=== PATIENT | male | born 1960 ===

== ENCOUNTER 2017-10-22 20:33 | Emergency (ER) | payer SELFPAY ==
[2017-10-22 22:05] LABS: Bilirubin,Urine NEG (Negative); Blood,Urine NEG (Negative); Color,Urine Yellow (Yellow); Mucus,Urine FEW /HPF; Protein,Urine <15 mg/dL mg/dL (Negative); WBC,Urine < 1.0 /HPF (0.0-6.0)
[2017-10-22 22:07] LABS: Basophils % (Auto) 1.1 % (0.0-1.8); Eosinophils # (Auto) 0.1 K/mm3 (0.0-0.4); Eosinophils % (Auto) 3.8 % (0.0-4.3); Hematocrit 41.2 % (35.5-45.6); Hemoglobin 13.9 gm/dl (11.8-15.2); Lymphocytes # (Auto) 1.7 K/mm3 (1.2-5.4); Lymphocytes % (Auto) 48.1 % (13.4-35.0); Mean Corpuscular HGB Conc 34 % (32-34); Mean Corpuscular Hemoglobin 32 pg (28-32); Mean Corpuscular Volume 94 fl (84-94); Monocytes # (Auto) 0.4 K/mm3 (0.0-0.8); Monocytes % (Auto) 10.3 % (0.0-7.3); Platelet Count 150 K/mm3 (140-440); Red Blood Count 4.37 M/mm3 (3.65-5.03); Red Cell Distribution Width 14.7 % (13.2-15.2)
[2017-10-22 22:32] LABS: Alanine Aminotransferase 12 units/L (7-56); Albumin 3.7 g/dL (3.9-5); BUN/Creatinine Ratio 13; Blood Urea Nitrogen 16 mg/dL (9-20); Calcium 9.3 mg/dL (8.4-10.2); Hemolysis Index 24
--- NOTE | 2017-10-23 09:36 | Emergency Department Report ---
ED General Adult HPI - General Chief complaint: Extremity Injury, Lower Stated complaint: BILATERAL FEET SWELLING Source: patient Mode of arrival: Ambulatory Limitations: No Limitations - History of Present Illness Initial comments: Mr. Gu is a 57-year-old male with bilateral feet swelling for 1 week. No history of hypertension. Denies any shortness of breath. Denies chest pain. Denies abdominal pain. Denies fever. Denies pain in the affected feet. Swelling subsides with elevation at night minimally. No history of diabetes, Has never needed medical care. Father is healthy he is alive at age is 86 Mother . History of 2 strokes. Siblings are healthy. 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 He does smoke tobacco daily. drinks Alcohol Occasionally. Severity scale (0 -10): 0 - Related Data Home Medications Medication Instructions Recorded Confirmed Last Taken No Known Home Medications [No 10/22/17 10/22/17 Unknown Reported Home Medications] Allergies Allergy/AdvReac Type Severity Reaction Status Date / Time No Known Allergies Allergy Unverified 10/22/17 21:42 ED Review of Systems ROS: Stated complaint: BILATERAL FEET SWELLING Other details as noted in HPI Comment: All other systems reviewed and negative Respiratory: denies: cough Cardiovascular: denies: chest pain Gastrointestinal: denies: abdominal pain ED Past Medical Hx - Past Medical History Previous Medical History?: No - Surgical History Past Surgical History?: No - Social History Smoking Status: Current Some Day Smoker Substance Use Type: None - Medications Home Medications: Home Medications Medication Instructions Recorded Confirmed Last Taken Type No Known Home Medications [No 10/22/17 10/22/17 Unknown History Reported Home Medications] ED Physical Exam - General Limitations: No Limitations General appearance: alert, in no apparent distress - Head Head exam: Present: atraumatic, normocephalic - Eye Eye exam: Present: normal appearance - ENT ENT exam: Present: mucous membranes moist - Neck Neck exam: Present: normal inspection - Respiratory Respiratory exam: Present: normal lung sounds bilaterally. Absent: respiratory distress, wheezes, rales, rhonchi - Cardiovascular Cardiovascular Exam: Present: regular rate, normal rhythm, normal heart sounds. Absent: systolic murmur, diastolic murmur, rubs, gallop - GI/Abdominal GI/Abdominal exam: Present: soft, normal bowel sounds. Absent: distended, tenderness, guarding, rebound - Rectal Rectal exam: Present: deferred - Extremities Exam Extremities exam: Present: normal inspection, pedal edema, other (ankle and foot edema no leg edema no erythema no tenderness) - Back Exam Back exam: Present: normal inspection - Neurological Exam Neurological exam: Present: alert, oriented X3 - Psychiatric Psychiatric exam: Present: normal affect, normal mood - Skin Skin exam: Present: warm, dry, intact, normal color. Absent: rash ED Course Vital Signs 10/22/17 10/23/17 10/23/17 21:36 09:19 09:20 Temperature 98.2 F 97.9 F Pulse Rate 67 54 L Respiratory 16 16 16 Rate Blood Pressure 112/64 Blood Pressure 119/70 [Left] O2 Sat by Pulse 99 98 98 Oximetry ED Medical Decision Making - Lab Data Result diagrams: 10/22/17 21:53 10/22/17 21:53 - Medical Decision Making Mr Dietrich presents with foot and ankle edema. With proteinuria hypoalbuminemia , clinical impression of nephrotic syndrome unknown etiology. I spoke with Dr. Vaughn rent control office manager on-call. He recommended outpatient follow up for possible kidney biopsy. I have told patient that he needs to follow-up with the rent control office manager. Discharged home in good stable condition Critical care attestation.: If time is entered above; I have spent that time in minutes in the direct care of this critically ill patient, excluding procedure time. ED Disposition Clinical Impression: Nephrotic syndrome Disposition: -01 TO HOME OR SELFCARE Is pt being admited?: No Does the pt Need Aspirin: No Condition: Stable Instructions: Leg Edema (ED) Additional Instructions: You have protein in your urine. You must see a kidney specialist as soon as possible. Referrals: JUAN VAUGHN MD [Staff Physician] - 3-5 Days Forms: Work/School Release Form(ED) Time of Disposition: 10:51
--- NOTE | 2017-10-23 10:26 | XRay Report ---
AP CHEST: HISTORY: Please swelling AP view of the chest demonstrates a normal mediastinal and cardiac contour with clear lungs and normal bony and soft tissue structures. IMPRESSION: Unremarkable AP chest.
[2017-10-23 11:00] VITALS: BP 124/78
== END 2017-10-23 11:00 | disposition home or self-care (01) ==
LOC: ED 20:33
DX: N04.9 Nephrotic syndrome with unspecified morphologic changes (principal); F17.200 Nicotine dependence, unspecified, uncomplicated
CPT/HCPCS: 36415; 71045; 80053; 81001; 85025; 99284